=== PATIENT | female | born 1985 | race Caucasian/White ===

== ENCOUNTER → 2016-09-04 | Outpatient (CLI) | payer BC | END | disposition home or self-care (01) | LOC: EDSTATUS 15:30 → CFH 16:25 | PROVIDERS: ATTEND Internal Medicine Gastroenterology | DX: N83.8 Other noninflammatory disorders of ovary, fallopian tube and broad ligament (principal); L68.0 Hirsutism; Z97.5 Presence of (intrauterine) contraceptive device | CPT/HCPCS: 76830 ==

== ENCOUNTER → 2016-09-04 | Outpatient (CLI) | payer BC | END | disposition home or self-care (01) | LOC: PETCFH 16:17 | PROVIDERS: ATTEND Internal Medicine Gastroenterology | DX: R68.81 Early satiety (principal); R11.0 Nausea; L68.0 Hirsutism | CPT/HCPCS: 78264; A9541 ==

== ENCOUNTER → 2016-12-04 | Outpatient (CLI) | payer BC ==
[~2016-12-04] MED LIST: GADOBUTROL 10 MMOL/10 ML VIAL ONE
== END | disposition home or self-care (01) ==
LOC: CFH 07:11
PROVIDERS: ATTEND Family Medicine
DX: G93.9 Disorder of brain, unspecified (principal); E22.1 Hyperprolactinemia
CPT/HCPCS: 70553; A9585